=== PATIENT | male | born 1980 | race Caucasian/White ===

== ENCOUNTER 2017-08-28 07:08 | Day surgery (SDC) | payer OTHER ==
[~2017-08-28 07:08] MED LIST: CEFAZOLIN 2 GM/50 ML (PMX) 50 ML IVPB; SOD CHLORIDE 0.9% 1,000 ML IV
[2017-08-28] MEDS: BUPIVACAINE 0.25%/EPI (SDV) 30 ML INJ INJ (07:57)
[2017-08-28] MEDS ORDERED: FENTAnyl 50 MCG/ML VIAL (08:22)
[2017-08-28] MEDS ORDERED: MIDAZOLAM 1 MG/ML 2 ML INJ (08:22)
[2017-08-28] MEDS: BUPIVACAINE 0.25%/EPI (SDV) 10 ML INJ INJ (09:05)
[2017-08-28] MEDS ORDERED: LIDOCAINE 2% (SDV) 5 ML INJ (09:38)
[2017-08-28] MEDS ORDERED: CEFAZOLIN 1 GM INJ (09:38)
[2017-08-28] MEDS ORDERED: ONDANSETRON 4 MG INJ (09:38)
[2017-08-28] MEDS ORDERED: PROPOFOL 20 ML (09:38)
[2017-08-28] MEDS ORDERED: ONDANSETRON 4 MG INJ IV (10:00)
[2017-08-28] MEDS ORDERED: IBUPROFEN 600 MG TAB PO (10:00)
[2017-08-28] MEDS: ALBUTEROL 0.5% (NEB) 2.5 MG/0.5 ML AMP INH (11:34)
== END 2017-08-28 12:09 | disposition home or self-care (01) ==
LOC: SDS 07:08
DX: M70.32 Other bursitis of elbow, left elbow (principal); M65.821 Other synovitis and tenosynovitis, right upper arm
CPT/HCPCS: 11406; 88307; 88312; 94664